=== PATIENT | female | born 1995 | race Caucasian/White ===

== ENCOUNTER 2018-05-22 18:16 | Emergency (ER) | payer OTHER ==
[2018-05-22 18:27] VITALS: BP 118/62
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
[2018-05-22] MEDS ORDERED: ACETAMINOPHEN 325 MG TABLET PO ONE (19:31)
[2018-05-22] MEDS ORDERED: IBUPROFEN 400 MG TABLET PO ONE (19:31)
== END 2018-05-22 20:05 | disposition home or self-care (01) ==
LOC: ER 18:16
PROC: 2W3KX1Z Immobilization of Left Finger using Splint (ICD-10-PCS; principal; 2018-05-22)
DX: S62.524A Nondisplaced fracture of distal phalanx of right thumb, initial encounter for closed fracture (principal); V89.2XXA Person injured in unspecified motor-vehicle accident, traffic, initial encounter
CPT/HCPCS: 99283; 73130; 29125; J3490

== ENCOUNTER 2020-03-30 19:21 | Emergency (ER) | payer OTHER ==
[2020-03-30] MEDS ORDERED: ONDANSETRON HCL INJ/PF 4 MG/2 ML SDV IV ONE ×2 (20:09→23:45)
[2020-03-30] MEDS ORDERED: DEXTROSE 5%-NORMAL SALINE 1,000 ML IV ONE (20:10)
[2020-03-30] MEDS ORDERED: NORMAL SALINE 1000 ML 1,000 ML IV ONE (20:10)
--- NOTE | 2020-03-30 20:13 | ER Document Report ---
ED Medical Screen (RME) - General Chief Complaint: Vomiting Stated Complaint: VOMITING/19 WKS 3 DAYS Time Seen by Provider: 03/30/20 20:07 Notes: HPI: 24-year-old female who is 19 weeks presenting for hyperemesis today. Greater than 6 episodes of vomiting. Occasional diarrhea. Reports some pelvic cramping with some vaginal spotting which had not occurred with this yet. No fever. Has Zofran and unisom/B6 at home but was not able to take it because of the vomiting. PHYSICAL EXAMINATION: Gravid uterus is palpable. No reproducible pelvic or abdominal pain. exam deferred in triage I have greeted and performed a rapid initial assessment of this patient. A comprehensive ED assessment and evaluation of the patient, analysis of test results and completion of medical decision making process will be conducted by an additional ED providers. TRAVEL OUTSIDE OF THE [place] IN LAST 30 DAYS: No Past Medical History Renal/ Medical History: Denies: Hx Peritoneal Dialysis Physical Exam - Vital signs Vitals: Temp Pulse Resp BP Pulse Ox 98.8 F 85 16 114/67 100 03/30/20 19:45 03/30/20 19:45 03/30/20 19:45 03/30/20 19:45 03/30/20 19:45 Course - Vital Signs Vital signs: Temp Pulse Resp BP Pulse Ox 98.8 F 85 16 114/67 100 03/30/20 19:45 03/30/20 19:45 03/30/20 19:45 03/30/20 19:45 03/30/20 19:45
[2020-03-30 21:18] LABS: ABSOLUTE EOSINOPHILS # (AUTO) 0.1 10^3/uL (0.0-0.6); ABSOLUTE LYMPHOCYTES (AUTO) 1.6 10^3/uL (0.5-4.7); ABSOLUTE MONOCYTES (AUTO) 0.4 10^3/uL (0.1-1.4); ABSOLUTE NEUT (AUTO) 7.3 10^3/uL (1.7-8.2); BASOPHILS % (AUTO) 0.3 % (0-2); EOSINOPHILS % (AUTO) 0.6 % (0-6); HEMATOCRIT 36.7 % (36.0-47.0); HEMOGLOBIN 12.8 g/dL (12.0-15.5); LYMPHOCYTES % (AUTO) 16.6 % (13-45); MEAN CORPUSCULAR HEMOGLOBIN 31.4 pg (27.0-33.4); MEAN CORPUSCULAR HGB CONC 34.9 g/dL (32.0-36.0); MEAN CORPUSCULAR VOLUME 90 fl (80-97); MONOCYTES % (AUTO) 4.6 % (3-13); PLATELET COUNT 259 10^3/uL (150-450); RED BLOOD COUNT 4.08 10^6/uL (3.72-5.28); RED CELL DISTRIBUTION WIDTH 12.8 % (11.5-14.0); SEGMENTED NEUTROPHILS % (AUTO) 77.9 % (42-78); TOTAL CELLS COUNTED % (AUTO) 100 %; WHITE BLOOD COUNT 9.4 10^3/uL (4.0-10.5)
[2020-03-30 21:35] LABS: ALBUMIN 4.2 g/dL (3.5-5.0); ALKALINE PHOSPHATASE 51 U/L (38-126); ANION GAP 7 (5-19); ASPARTATE AMINO TRANSFERASE 18 U/L (14-36); BILIRUBIN,TOTAL 0.2 mg/dL (0.2-1.3); BLOOD UREA NITROGEN 6 mg/dL (7-20); CALCIUM 9.3 mg/dL (8.4-10.2); CARBON DIOXIDE 23 mmol/L (22-30); CHLORIDE 104 mmol/L (98-107); GLUCOSE 80 mg/dL (75-110); TOTAL PROTEIN 7.2 g/dL (6.3-8.2)
[2020-03-30 21:36] LABS: APPEARANCE,URINE CLOUDY; BILIRUBIN,URINE NEGATIVE (NEGATIVE); COLOR,URINE YELLOW; GLUCOSE, URINE NEGATIVE (NEGATIVE); KETONES,URINE TRACE mg/dL (NEGATIVE); LEUKOCYTE ESTERASE,URINE SMALL (NEGATIVE); NITRITE,URINE NEGATIVE (NEGATIVE); PROTEIN,URINE NEGATIVE (NEGATIVE); URINE SPECIFIC GRAVITY 1.028; UROBILINOGEN,URINE NEGATIVE mg/dL (<2.0)
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
[2020-03-31] MEDS ORDERED: NORMAL SALINE 1000 ML 1,000 ML IV ONE (00:38)
--- NOTE | 2020-03-31 00:50 | RADIOLOGY REPORT (SQ) ---
EXAM DESCRIPTION: US LIMITED COMPLETED DATE/TME: 03/30/2020 23:21 CLINICAL HISTORY: 24 years, Female, vag bleeding COMPARISON: None. TECHNIQUE: LIMITATIONS: None. FINDINGS: There is a live 19 week 1 day +/- 1 week IUP in vertex presentation. cardiac activity was measured at 165 bpm. The placenta is anterior in location with no evidence of abruption or previa. There is a normal amount of amniotic fluid. The cervix measures 3.5 cm in length and is closed. IMPRESSION: Unremarkable IUP. copyright 2010 [employer]- All Rights Reserved
[2020-03-31] MEDS ORDERED: PROMETHAZINE HCL 25 MG SUPP (4 SUPP/ER DISP) PR ONE (01:23)
[2020-03-31 02:10] VITALS: BP 97/60
== END 2020-03-31 02:17 | disposition home or self-care (01) ==
LOC: ER 19:21
DX: O21.0 Mild hyperemesis gravidarum (principal); O20.9 Hemorrhage in early pregnancy, unspecified; O26.892 Other specified pregnancy related conditions, second trimester; R68.83 Chills (without fever); R10.2 Pelvic and perineal pain; R09.89 Other specified symptoms and signs involving the circulatory and respiratory systems; Z3A.19 19 weeks gestation of pregnancy; Z79.899 Other long term (current) drug therapy
CPT/HCPCS: 99285; 96361; 96374; 86900; 86901; 36415; 87070; 87880; 84702; 85025; 80053; 81001; 76815; J3490; J2405; J7030 ×2

== ENCOUNTER 2020-06-11 19:59 | Outpatient (CLI) | payer OTHER ==
[2020-06-11 21:07] LABS: APPEARANCE,URINE SLIGHTLY-CLOUDY; BILIRUBIN,URINE NEGATIVE (NEGATIVE); COLOR,URINE YELLOW; GLUCOSE, URINE NEGATIVE (NEGATIVE); KETONES,URINE NEGATIVE (NEGATIVE); LEUKOCYTE ESTERASE,URINE NEGATIVE (NEGATIVE); NITRITE,URINE NEGATIVE (NEGATIVE); PROTEIN,URINE NEGATIVE (NEGATIVE); URINE SPECIFIC GRAVITY 1.015; UROBILINOGEN,URINE NEGATIVE mg/dL (<2.0)
[2020-06-11 21:21] LABS: URINE AMPHETAMINES SCREEN NEGATIVE; URINE BARBITURATES SCREEN NEGATIVE; URINE BENZODIAZEPINES SCREEN NEGATIVE; URINE COCAINE SCREEN NEGATIVE; URINE MARIJUANA (THC) SCREEN NEGATIVE; URINE METHADONE SCREEN NEGATIVE; URINE PHENCYCLIDINE SCREEN NEGATIVE
== END 2020-06-11 21:54 | disposition home or self-care (01) ==
LOC: LC 19:59
PROVIDERS: ATTEND Obstetrics & Gynecology Gynecology
DX: O47.03 False labor before 37 completed weeks of gestation, third trimester (principal); Z3A.29 29 weeks gestation of pregnancy
CPT/HCPCS: 80307; 81001